=== PATIENT | female | born 1970 ===

== ENCOUNTER 2017-11-30 21:52 | Emergency (ER) | payer MEDICAID ==
[2017-11-30 21:52] VITALS: BMI 32.2
[2017-11-30 22:02] VITALS: O2SAT 100
[2017-11-30] MEDS ORDERED: Sodium Chloride 0.9% 1,000 ML IV STA (22:05)
--- NOTE | 2017-11-30 22:12 | ED PDOC ---
Arrival/HPI - General Chief Complaint: Abdominal Pain Time Seen by Provider: 11/30/17 21:53 Historian: Patient - History of Present Illness Narrative History of Present Illness (Text): 11/30/17 22:08 47 year old female, whose past medical history includes hypertension, appendectomy, and tonsillectomy, presents to the emergency department complaining of right upper abdominal pain. Patient was recently diagnosed with gallstones. Patient denies any fever, chills, chest pain, shortness of breath, nausea, vomiting, diarrhea, urinary symptoms, back pain, neck pain, headache, dizziness, or any other complaints. Symptom Onset: Gradual Symptom Course: Unchanged Activities at Onset: Light Context: Home Past Medical History - Provider Review Nursing Documentation Reviewed: Yes - Past History Past History: No Previous - Infectious Disease Hx of Infectious Diseases: None - Tetanus Immunization Tetanus Immunization: Unknown - Reproductive Menopause: Yes - Cardiac Hx Hypertension: Yes - Pulmonary Hx Respiratory Disorders: No - Neurological Hx Migraine: Yes - HEENT Hx HEENT Disorder: No - Renal Hx Renal Disorder: No - Endocrine/Metabolic Hx Endocrine Disorders: No - Hematological/Oncological Hx Blood Disorders: No - Integumentary Hx Dermatological Disorder: No - Musculoskeletal/Rheumatological Hx Musculoskeletal Disorders: Yes Hx Back Pain: Yes - Gastrointestinal Hx Gastrointestinal Disorders: No Other/Comment: gall stones - Genitourinary/Gynecological Hx Genitourinary Disorders: No - Psychiatric Hx Anxiety: Yes Hx Depression: Yes Hx Emotional Abuse: No Hx Physical Abuse: No Hx Substance Use: No - Past Surgical History Past Surgical History: No Previous - Surgical History Hx Appendectomy: Yes Hx Tonsillectomy: Yes - Anesthesia Hx Anesthesia: Yes Hx Anesthesia Reactions: No Hx Malignant Hyperthermia: No - Suicidal Assessment Feels Threatened In Home Enviroment: No Family/Social History - Physician Review Nursing Documentation Reviewed: Yes Family/Social History: No Known Family HX Smoking Status: Former Smoker Hx Alcohol Use: No Hx Substance Use: No Hx Substance Use Treatment: No Allergies/Home Meds Allergies/Adverse Reactions: Allergies Latex, Natural Rubber Allergy (Verified 11/30/17 21:57) RASH Home Medications: Home Meds Medication Instructions Recorded Confirmed Lisinopril 40 mg PO DAILY 05/31/14 11/30/17 Review of Systems - Physician Review All systems were reviewed & negative as marked: Yes - Review of Systems Constitutional: absent: Fevers, Other (Chills) Respiratory: absent: SOB Cardiovascular: absent: Chest Pain Gastrointestinal: Abdominal Pain. absent: Diarrhea, Nausea, Vomiting Genitourinary Female: absent: Dysuria, Frequency, Hematuria Musculoskeletal: absent: Back Pain, Neck Pain Neurological: absent: Headache, Dizziness Physical Exam Vital Signs Reviewed: Yes Vital Signs Temp Pulse Resp BP Pulse Ox 12/01/17 02:05 97.5 F L 68 16 124/63 100 12/01/17 01:20 97.4 F L 62 16 116/64 100 11/30/17 21:54 97.1 F L 81 19 146/100 H 100 Temperature: Hypothermic Blood Pressure: Hypertensive Pulse: Regular Respiratory Rate: Normal Appearance: Positive for: Well-Appearing, Non-Toxic, Comfortable Pain Distress: None Mental Status: Positive for: Alert and Oriented X 3 - Systems Exam Head: Present: Atraumatic, Normocephalic Pupils: Present: PERRL Extroacular Muscles: Present: EOMI Conjunctiva: Present: Normal Mouth: Present: Moist Mucous Membranes Neck: Present: Normal Range of Motion Respiratory/Chest: Present: Clear to Auscultation, Good Air Exchange. No: Respiratory Distress, Accessory Muscle Use Cardiovascular: Present: Regular Rate and Rhythm, Normal S1, S2. No: Murmurs Abdomen: Present: Tenderness (Mild right upper quadrant ). No: Distention, Peritoneal Signs Back: Present: Normal Inspection Upper Extremity: Present: Normal Inspection. No: Cyanosis, Edema Lower Extremity: Present: Normal Inspection. No: Edema Neurological: Present: GCS=15, CN II-XII Intact, Speech Normal Skin: Present: Warm, Dry, Normal Color. No: Rashes Psychiatric: Present: Alert, Oriented x 3, Normal Insight, Normal Concentration Medical Decision Making ED Course and Treatment: 11/30/17 22:11 Impression: 47 year old female presents complaining of right upper quadrant tenderness. Patient recently diagnosed with gallstones. Plan: -- Labs -- IV Fluids, Toradol. Zofran Inj -- POC Urine Test -- UA -- reassess and disposition Prior Visits: Notes and results from pervious visits were reviewed. Progress Notes: 11/30/17 21:59 EKG shows NSR at 68 BPM. Normal EKG. Interpreted by me. EXAM: CT Abdomen and Pelvis With Intravenous Contrast Dictated and Authenticated by: William Christopher MD 12/01/2017 1:41 AM IMPRESSION: 1. Very large amount of retained feces in the cecum ascending colon, and portions of the transverse colon. 2. Apparent sigmoid colon wall thickening approximately 10 cm. Under distention versus pathological wall thickening from infections or inflammatory process. Correlate with site of tenderness. 3. Right adnexal cyst 3.5 x 3.5 x 4.0 cm. Ultrasound pelvis recommended. 12/01/17 02:00 On re-evaluation, patient feels better and is in no acute distress. I have discussed the results and plan with the patient, who expresses understanding. Patient in agreement with plan to be discharged home. Patient is stable for discharge. Patient was instructed to follow up with physician or return if symptoms worsen or new concerning symptoms arise. - Lab Interpretations Microbiology Results: Microbiology Results 11/30/17 22:23 Urine,Clean Catch Urine Culture - Final No Growth (<1,000 CFU/ML) Lab Results: 11/30/17 22:35 11/30/17 22:35 Lab Results 11/30/17 22:35: Sodium 141, Potassium 3.5 L, Chloride 106, Carbon Dioxide 24, Anion Gap 14, BUN 12, Creatinine 0.6 L, Est GFR ( Amer) > 60, Est GFR ( Non-Af Amer) > 60, Random Glucose 95, Calcium 9.1, Magnesium 2.1, Total Bilirubin 0.3, AST 64 H, ALT 38, Alkaline Phosphatase 75, Total Protein 7.5, Albumin 4.2, Globulin 3.3, Albumin/Globulin Ratio 1.3, Lipase 65 11/30/17 22:35: PT 12.1, INR 1.06, APTT 29.2 11/30/17 22:35: WBC 5.3, RBC 4.61, Hgb 12.6, Hct 38.0, MCV 82.4, MCH 27.3, MCHC 33.2, RDW 14.3, Plt Count 215, MPV 11.2 H, Gran % 56.2, Lymph % (Auto) 31.3, [place] % (Auto) 8.7 H, Eos % (Auto) 3.6, Baso % (Auto) 0.2, Gran # 2.97, Lymph # ( Auto) 1.7, [place] # (Auto) 0.5, Eos # (Auto) 0.2, Baso # (Auto) 0.01 11/30/17 22:29: Urine Color Yellow, Urine Appearance Clear, Urine pH 7.0, Ur Specific [place] 1.020, Urine Protein Negative, Urine Glucose (UA) Negative, Urine Ketones Negative, Urine Blood Negative, Urine Nitrate Negative, Urine Bilirubin Negative, Urine Urobilinogen 0.2, Ur Leukocyte Esterase Trace H, Urine RBC Negative, Urine WBC 10 - 15, Ur Epithelial Cells 10 - 12, Urine Bacteria Many I have reviewed the lab results: Yes - RAD Interpretation Radiology Orders: 11/30/17 23:33 ABD & PELVIS IV CONTRAST ONLY [CT] Stat - Medication Orders Current Medication Orders: Discontinued Medications Cephalexin Monohydrate (Keflex) 500 mg PO STAT STA PRN Reason: Protocol Stop: 12/01/17 01:55 Last Admin: 12/01/17 02:13 Dose: 500 mg Sodium Chloride (Sodium Chloride 0.9%) 1,000 mls @ 100 mls/hr IV .Q10H STA Stop: 12/01/17 08:04 Last Admin: 11/30/17 22:41 Dose: 100 mls/hr eMAR Start Stop Document 11/30/17 22:41 (Rec: 11/30/17 22:42 [id number] Intravenous Solution Start Date 11/30/17 Start Time 22:41 Ketorolac Tromethamine (Toradol) 15 mg IVP STAT STA Stop: 11/30/17 22:06 Last Admin: 11/30/17 22:36 Dose: 15 mg MAR Pain Assessment Document 11/30/17 22:36 (Rec: 11/30/17 22:36 [id number] Pain Reassessment Is this a pain reassessment? Yes Pain Scale Used Pain Scale Used Numeric Location Upper or Lower Upper Pain Location Body Site Abdomen Back Description Description Constant Pain Behavior Facial Grimacing IVP Administration Document 11/30/17 22:36 (Rec: 11/30/17 22:36 [id number] Charges for Administration # of IVP Administrations 1 Re-Assess: СВЕТЛАНА Pain Assessment Document 11/30/17 23:36 (Rec: 12/01/17 02:13 [id number] Pain Reassessment Is this a pain reassessment? Yes Sleep Is patient sleeping during reassessment? Yes Ondansetron HCl (Zofran Inj) 4 mg IVP STAT STA Stop: 11/30/17 22:06 Last Admin: 11/30/17 22:36 Dose: Not Given Non-Admin Reason: Patient Refused IVP Administration Document 11/30/17 22:36 NATANAEL (Rec: 11/30/17 22:36 RG [id number]) Charges for Administration # of IVP Administrations 0 - Scribe Statement The provider has reviewed the documentation as recorded by the Sarah Mauricio Provider Scribe Attestation: All medical record entries made by the Justiceibhazel were at my direction and personally dictated by me. I have reviewed the chart and agree that the record accurately reflects my personal performance of the history, physical exam, medical decision making, and the department course for this patient. I have also personally directed, reviewed, and agree with the discharge instructions and disposition. Disposition/Present on Arrival - Present on Arrival Any Indicators Present on Arrival: No History of DVT/PE: No History of Uncontrolled Diabetes: No Urinary Catheter: No History of Decub. Ulcer: No History Surgical Site Infection Following: None - Disposition Have Diagnosis and Disposition been Completed?: Yes Diagnosis: UTI (urinary tract infection) Disposition: HOME/ ROUTINE Disposition Time: 02:00 Condition: GOOD Discharge Instructions (ExitCare): Urinary Tract Infections in Adults Prescriptions: Cephalexin [Keflex] 500 mg PO BID #14 capsule Forms: [employer] (Spanish)
[2017-11-30 22:35] LABS: URINE BILIRUBIN NEGATIVE (NEGATIVE); URINE BLOOD NEGATIVE (NEGATIVE); URINE GLUCOSE (UA) NEGATIVE (NEGATIVE); URINE LEUKOCYTE ESTERASE TRACE Leu/uL (NEGATIVE); URINE PROTEIN NEGATIVE mg/dL (<30 mg/dL); URINE UROBILINOGEN 0.2 E.U./dL (<1 E.U./dL)
[2017-11-30 22:39] LABS: URINE APPEARANCE CLEAR (CLEAR); URINE COLOR YELLOW (YELLOW)
[2017-11-30 22:50] LABS: URINE BACTERIA MANY (NEG); URINE RBC NEGATIVE /hpf (0-2)
[2017-11-30 23:01] LABS: BASO # 0.01 K/mm3 (0.0-2.0); BASO % 0.2 % (0.0-3.0); EOS # 0.2 (0.0-0.7); EOS % 3.6 % (1.5-5.0); GRAN # 2.97 (1.4-6.5); GRAN % 56.2 % (50.0-68.0); HEMOGLOBIN 12.6 g/dL (12.0-16.0); LYMPH # 1.7 (1.2-3.4); LYMPH % 31.3 % (22.0-35.0); MEAN CELL VOLUME 82.4 fl (80.0-105.0); MEAN CORPUSCULAR HEMOGLOBIN 27.3 pg (25.0-35.0); MEAN CORPUSCULAR HGB CONC 33.2 g/dl (31.0-37.0); MEAN PLATELET VOLUME 11.2 fl (7.0-11.0); MONO # 0.5 (0.1-0.6); MONO % 8.7 % (1.0-6.0); RBC 4.61 10^6/uL (3.5-6.1); RED CELL DISTRIBUTION WIDTH 14.3 % (11.5-14.5); WHITE BLOOD COUNT 5.3 10^3/ul (4.5-11.0)
[2017-11-30 23:10] LABS: INR 1.06; PARTIAL THROMBOPLASTIN TIME 29.2 Seconds (25.1-36.5); PROTHROMBIN TIME 12.1 SECONDS (9.4-12.5)
[2017-11-30 23:14] LABS: ALB/GLOB RATIO 1.3 (1.1-1.8); ALBUMIN 4.2 g/dL (3.0-4.8); ALT/SGPT 38 U/L (7-56); AST/SGOT 64 U/L (14-36); BLOOD UREA NITROGEN 12 mg/dL (7-21); CALCIUM 9.1 mg/dL (8.4-10.5); GFR NON-AFRICAN AMERICAN > 60; LIPASE 65 U/L (23-300)
[2017-11-30] MEDS ORDERED: Iohexol 350 MG/100 ML VIAL ONE (23:40)
[2017-12-01 01:20] VITALS: RESP 16
[2017-12-01 02:16] VITALS: BP 124/63; PULSE 68; TEMP 97.5
--- NOTE | 2017-12-01 08:03 | CT ---
EXAM: CT Abdomen and Pelvis With Intravenous Contrast CLINICAL HISTORY: 47 years old, female; Pain; Abdominal pain; Generalized; Prior surgery; Surgery date: 6+ months; Surgery type: HX appendectomy, HX gastric bypass; Additional info: Abd pain TECHNIQUE: Axial computed tomography images of the abdomen and pelvis with intravenous contrast. All CT scans at this facility use at least one of these dose optimization techniques: automated exposure control; mA and/or kV adjustment per patient size (includes targeted exams where dose is matched to clinical indication); or iterative reconstruction. Coronal and sagittal reformatted images were created and reviewed. CONTRAST: 100 mL of omnipaque 350 administered intravenously. COMPARISON: CT - PELVIS W/WO CONTRAST 11/06/2016 1:09 PM FINDINGS: Lung bases: Dependent lung atelectasis. ABDOMEN: Liver: Intact. No mass. Gallbladder and bile ducts: Intact. No calcified stones. No ductal dilation. Pancreas: No mass. No ductal dilation. Spleen: No splenomegaly. Adrenals: No mass. Kidneys and ureters: No solid mass. No hydronephrosis. Stomach and bowel: Very large amount of retained feces in the cecum ascending colon, and portions of the transverse colon. Apparent sigmoid colon wall thickening on coronal series 6 image 46 in the midline lower abdomen and upper pelvis spanning approximately 10 cm. Post gastric bypass changes and the stomach appeared PELVIS: Appendix: Appendectomy. The visualized appendix appears normal. Likelihood of acute appendix inflammation is low. Bladder: No mass. Reproductive: Right adnexal cyst 3.5 x 3.5 x 4.0 cm. Left adnexal cyst 2.3 x 2.0 x 3.0 cm. ABDOMEN and PELVIS: Intraperitoneal space: No free air. No significant fluid collection. Bones/joints: No acute fracture. No dislocation. Soft tissues: No radiopaque foreign body. Vasculature: No aortic aneurysm. Lymph nodes: No enlarged lymph nodes. IMPRESSION: 1. Very large amount of retained feces in the cecum ascending colon, and portions of the transverse colon. 2. Apparent sigmoid colon wall thickening approximately 10 cm. Under distention versus pathological wall thickening from infections or inflammatory process. Correlate with site of tenderness. 3. Right adnexal cyst 3.5 x 3.5 x 4.0 cm. Ultrasound pelvis recommended.
--- NOTE | 2017-12-01 15:23 | CARD ---
APPROVED REPORT Date of service: 11/30/2017 EKG Measurement Heart [id number] <Conclusion> Normal sinus rhythm Normal ECG
== END 2017-12-01 02:15 | disposition home or self-care (01) ==
LOC: ED 21:52
DX: N39.0 Urinary tract infection, site not specified (principal); I10 Essential (primary) hypertension; Z87.891 Personal history of nicotine dependence
CPT/HCPCS: 74177; 80053; 81001; 83690; 83735; 85025; 85610; 85730; 87086; 93005; 96374; 99284; J1885; J7030; Q9967